=== PATIENT | female | born 1945 | race Caucasian/White ===

== ENCOUNTER → 2017-05-17 | Outpatient (CLI) | payer OTHER | LOC: BHFA 11:30 | PROVIDERS: ATTEND Internal Medicine Cardiovascular Disease | DX: R00.2 Palpitations (principal) ==

== ENCOUNTER → 2017-06-19 | Outpatient (CLI) | payer OTHER | LOC: BHLMT 13:30 | PROVIDERS: ATTEND Internal Medicine Cardiovascular Disease | DX: I48.91 Unspecified atrial fibrillation (principal) | CPT/HCPCS: 78452; 93017; A9500 ==

== ENCOUNTER → 2017-09-27 | Outpatient (CLI) | payer OTHER | LOC: FIMAGING 13:46 | PROVIDERS: ATTEND Family Medicine | DX: Z12.31 Encounter for screening mammogram for malignant neoplasm of breast (principal); Z80.3 Family history of malignant neoplasm of breast ==

== ENCOUNTER → 2017-11-14 | Outpatient (CLI) | payer OTHER | LOC: CIMAGING 13:40 | PROVIDERS: ATTEND Family Medicine | DX: M17.12 Unilateral primary osteoarthritis, left knee (principal) | CPT/HCPCS: 73560-PO ==

== ENCOUNTER → 2018-03-04 | Outpatient (CLI) | payer OTHER | LOC: CIMAGING 09:28 | PROVIDERS: ATTEND Family Medicine | DX: J18.9 Pneumonia, unspecified organism (principal) | CPT/HCPCS: 71046-PO ==

== ENCOUNTER → 2018-08-16 | Outpatient (CLI) | payer OTHER | LOC: CIMAGING 15:03 → EDSTATUS 15:04 → CIMAGING 15:04 | PROVIDERS: ATTEND Family Medicine | DX: M18.12 Unilateral primary osteoarthritis of first carpometacarpal joint, left hand (principal); M75.42 Impingement syndrome of left shoulder | CPT/HCPCS: 73030-PO; 73130-PO ==

== ENCOUNTER → 2018-08-21 | Outpatient (CLI) | payer OTHER | LOC: CIMAGING 15:33 | PROVIDERS: ATTEND Family Medicine | DX: Z00.00 Encounter for general adult medical examination without abnormal findings (principal); J40 Bronchitis, not specified as acute or chronic; M51.34 Other intervertebral disc degeneration, thoracic region; Z87.01 Personal history of pneumonia (recurrent) | CPT/HCPCS: 71046-PO ==